=== PATIENT | male | born 1955 | race Caucasian/White ===

== ENCOUNTER 2016-07-14 23:26 | Emergency (ER) | payer MEDICAID ==
[2015-10-13 14:01] VITALS: BMI 36.4
[~2016-07-14 23:26] MED LIST: ADVAIR HFA [SP]12 GM INH; AUGMENTIN 875-11 TAB PO; BAYER CHEWABLE81 MG PO; BREO ELLIPTA 11 EACH INH; DALIRESP500 MCG PO; FISH OIL 1,0001 CA1; FISH OIL 1,0001 CA1 PO; GLUCOPHAGE500 MG PO; IPRAT-ALBUT 0.5-3 ML UPD; LANTUS INSULIN10 ML SC; MUCINEX DM ER1 EAC1 PO; NORCO 10/325 TA1 TA1 PO; OMNICEF300 MG PO; PERFOROMIS20 MCG/21 UPD; PLAVIX75 MG PO; PRAVACHOL40 MG PO; PREDNISONE20 MG PO; PRINIVIL20 MG PO; PROVENTIL HFA6.7 GM INH; PULMICORT0.5 MG/21 UPD; SINGULAIR10 MG PO; STERAPRED 5MG 125 MG PO; STERAPRED DS 1010 MG PO; SYMBICORT 16010.2 GM INH; SYMBICORT 80-10.2 GM INH; TENORMIN25 MG PO; VITAMIN B-121000 MCG PO; VITAMIN B-1250 MCG; ZITHROMAX500 MG PO
[2016-07-15 00:26] LABS: BASOPHILS 0.6 % (0.0-2.0); HEMATOCRIT 44.7 % (42.0-54.0); HEMOGLOBIN 15.4 g/dL (13.5-17.5); IMMATURE GRANULOCYTES 0.4 % (0-5); LYMPHOCYTES 18.9 % (15-50); MCH 30.1 pg (26.0-34.0); MCHC 34.5 g/dL (31.0-37.0); MCV 87.3 fL (80.0-100.0); MEAN PLATELET VOLUME 11.7 fL (7.4-10.4); MONOCYTES 4.1 % (2-11); PLATELET COUNT 162 10x3/uL (130-400); RBC 5.12 10x6/uL (4.20-6.10); RDW 13.8 % (11.5-14.5); WBC 11.3 10x3/uL (4.8-10.8)
[2016-07-15 00:49] LABS: ALBUMIN 3.3 g/dL (3.4-5.0); ALKALINE PHOSPHATASE 88 U/L (46-116); ALT (SGPT) 62 U/L (10-68); BILIRUBIN - TOTAL 0.42 mg/dL (0.2-1.3); CALCIUM 8.8 mg/dL (8.5-10.1); CHLORIDE - SERUM 107 mmol/L (98-107); CREATINE KINASE 87 UL (21-232); CREATININE - SERUM 0.8 mg/dL (0.6-1.3); MAGNESIUM - SERUM 1.7 mg/dL (1.8-2.4); POTASSIUM - SERUM 4.2 mmol/L (3.5-5.1); PRO BNP 77 pg/mL (0-125); PROTEIN - SERUM 6.8 g/dL (6.4-8.2); SODIUM 142 mmol/L (136-145); UREA NITROGEN 9 mg/dL (7-18); eGFR NON AFRICAN AMERICAN > 90 mL/min (90-120)
[2016-07-15 00:51] LABS: CALC OSMOLALITY 290 mosm/kg (275-300); GLUCOSE 257 mg/dL (74-106); TROPONIN-I < 0.017 ng/mL (0.000-0.060)
== END 2016-07-15 01:56 | disposition home or self-care (01) ==
LOC: D.ER 23:26
PROVIDERS: Emergency Medicine
DX: R06.00 Dyspnea, unspecified (principal); M54.5 Low back pain; J44.9 Chronic obstructive pulmonary disease, unspecified; E11.9 Type 2 diabetes mellitus without complications; Z79.4 Long term (current) use of insulin

== ENCOUNTER 2016-08-14 00:08 | Emergency (ER) | payer MEDICAID ==
[2015-10-13 14:01] VITALS: BMI 36.4
[2016-08-14 00:48] LABS: BASOPHILS 0.6 % (0.0-2.0); EOSINOPHILS 1.8 % (0-7); HEMATOCRIT 46.5 % (42.0-54.0); HEMOGLOBIN 15.9 g/dL (13.5-17.5); IMMATURE GRANULOCYTES 0.6 % (0-5); LYMPHOCYTES 19.8 % (15-50); MCH 29.9 pg (26.0-34.0); MCHC 34.2 g/dL (31.0-37.0); MCV 87.6 fL (80.0-100.0); MEAN PLATELET VOLUME 11.7 fL (7.4-10.4); MONOCYTES 6.3 % (2-11); NEUTROPHILS 70.9 % (40-80); PLATELET COUNT 143 10x3/uL (130-400); RBC 5.31 10x6/uL (4.20-6.10); RDW 13.9 % (11.5-14.5); WBC 10.7 10x3/uL (4.8-10.8)
[2016-08-14 01:07] LABS: ALBUMIN 3.3 g/dL (3.4-5.0); ALKALINE PHOSPHATASE 91 U/L (46-116); ALT (SGPT) 52 U/L (10-68); CALC OSMOLALITY 291 mosm/kg (275-300); CALCIUM 8.4 mg/dL (8.5-10.1); CARBON DIOXIDE 29.6 mmol/L (21.0-32.0); CHLORIDE - SERUM 103 mmol/L (98-107); CREATININE - SERUM 0.8 mg/dL (0.6-1.3); GLUCOSE 274 mg/dL (74-106); SODIUM 141 mmol/L (136-145); UREA NITROGEN 15 mg/dL (7-18); eGFR NON AFRICAN AMERICAN > 90 mL/min (90-120)
[2016-08-14 01:14] LABS: PRO BNP 74 pg/mL (0-125)
== END 2016-08-14 01:42 | disposition home or self-care (01) ==
LOC: D.ER 00:08
PROVIDERS: Physician Assistant Medical
DX: J44.1 Chronic obstructive pulmonary disease with (acute) exacerbation (principal); E11.9 Type 2 diabetes mellitus without complications; Z79.4 Long term (current) use of insulin

== ENCOUNTER 2016-11-08 15:06 | Emergency (ER) | payer MEDICAID ==
[2015-10-13 14:01] VITALS: BMI 36.4
[2016-11-08 16:00] LABS: BASOPHILS 0.5 % (0-2); EOSINOPHILS 1.5 % (0-7); HEMATOCRIT 45.1 % (42.0-54.0); HEMOGLOBIN 15.7 g/dL (13.5-17.5); IMMATURE GRANULOCYTES 0.5 % (0-5); LYMPHOCYTES 17.8 % (15-50); MCH 30.5 pg (26.0-34.0); MCHC 34.8 g/dL (31.0-37.0); MCV 87.6 fL (80.0-100.0); MEAN PLATELET VOLUME 11.6 fL (7.4-10.4); MONOCYTES 5.2 % (2-11); NEUTROPHILS 74.5 % (40-80); PLATELET COUNT 145 10x3/uL (130-400); RBC 5.15 10x6/uL (4.20-6.10); RDW 13.9 % (11.5-14.5)
[2016-11-08 18:26] LABS: ALBUMIN 3.5 g/dL (3.4-5.0); ALKALINE PHOSPHATASE 77 U/L (46-116); ALT (SGPT) 56 U/L (10-68); AMYLASE - SERUM 52 U/L (25-115); CALC OSMOLALITY 284 mosm/kg (275-300); CALCIUM 8.9 mg/dL (8.5-10.1); CARBON DIOXIDE 26.6 mmol/L (21.0-32.0); CHLORIDE - SERUM 104 mmol/L (98-107); CREATININE - SERUM 0.7 mg/dL (0.6-1.3); LIPASE 149 U/L (73-393); POTASSIUM - SERUM 3.7 mmol/L (3.5-5.1); PROTEIN - SERUM 7.2 g/dL (6.4-8.2); SODIUM 139 mmol/L (136-145); UREA NITROGEN 14 mg/dL (7-18); eGFR NON AFRICAN AMERICAN > 90 mL/min (90-120)
[2016-11-08 18:48] LABS: GLUCOSE 204 mg/dL (74-106)
[2016-11-08 23:23] LABS: APPEARANCE CLEAR (CLEAR); BILIRUBIN NEGATIVE (NEGATIVE); COLOR YELLOW (YELLOW); GLUCOSE 1000 mg/dL (NEGATIVE); KETONE NEGATIVE (NEGATIVE); LEUKOCYTE ESTERASE NEGATIVE (NEGATIVE); NITRITE NEGATIVE (NEGATIVE); PROTEIN NEGATIVE (NEGATIVE); UROBILINOGEN NORMAL (NORMAL)
== END 2016-11-09 01:00 | disposition home or self-care (01) ==
LOC: D.ER 15:06
PROVIDERS: Emergency Medicine; Physician Assistant
DX: R10.9 Unspecified abdominal pain (principal); J44.9 Chronic obstructive pulmonary disease, unspecified; I10 Essential (primary) hypertension; I25.10 Atherosclerotic heart disease of native coronary artery without angina pectoris; I50.9 Heart failure, unspecified; F17.200 Nicotine dependence, unspecified, uncomplicated

== ENCOUNTER 2016-12-08 10:31 | Emergency (ER) | payer MEDICAID ==
[2015-10-13 14:01] VITALS: BMI 36.4
[2016-12-08 13:11] LABS: BASOPHILS 0.6 % (0-2); EOSINOPHILS 2.4 % (0-7); HEMOGLOBIN 15.4 g/dL (13.5-17.5); IMMATURE GRANULOCYTES 0.4 % (0-5); LYMPHOCYTES 17.1 % (15-50); MCH 30.3 pg (26.0-34.0); MCHC 34.2 g/dL (31.0-37.0); MCV 88.4 fL (80.0-100.0); MEAN PLATELET VOLUME 11.8 fL (7.4-10.4); MONOCYTES 5.2 % (2-11); NEUTROPHILS 74.3 % (40-80); PLATELET COUNT 152 10x3/uL (130-400); RBC 5.09 10x6/uL (4.20-6.10); RDW 13.7 % (11.5-14.5)
[2016-12-08 13:30] LABS: ALBUMIN 3.3 g/dL (3.4-5.0); ALKALINE PHOSPHATASE 84 U/L (46-116); ALT (SGPT) 53 U/L (10-68); CALC OSMOLALITY 292 mosm/kg (275-300); CALCIUM 9.6 mg/dL (8.5-10.1); CARBON DIOXIDE 30.4 mmol/L (21.0-32.0); CHLORIDE - SERUM 105 mmol/L (98-107); CREATININE - SERUM 0.7 mg/dL (0.6-1.3); POTASSIUM - SERUM 3.8 mmol/L (3.5-5.1); SODIUM 145 mmol/L (136-145); UREA NITROGEN 16 mg/dL (7-18); eGFR NON AFRICAN AMERICAN > 90 mL/min (90-120)
[2016-12-08 13:35] LABS: GLUCOSE 151 mg/dL (74-106)
[2016-12-08 13:39] LABS: PRO BNP 149 pg/mL (0-125)
== END 2016-12-08 14:28 | disposition home or self-care (01) ==
LOC: D.ER 10:31
PROVIDERS: Emergency Medicine
DX: R06.00 Dyspnea, unspecified (principal); J44.1 Chronic obstructive pulmonary disease with (acute) exacerbation; I10 Essential (primary) hypertension; I50.9 Heart failure, unspecified; I25.10 Atherosclerotic heart disease of native coronary artery without angina pectoris

== ENCOUNTER 2017-01-12 01:53 | Emergency (ER) | payer MEDICAID ==
[2015-10-13 14:01] VITALS: BMI 36.4
== END 2017-01-12 02:51 | disposition home or self-care (01) ==
LOC: D.ER 01:53
DX: R06.00 Dyspnea, unspecified (principal); J44.1 Chronic obstructive pulmonary disease with (acute) exacerbation; J45.909 Unspecified asthma, uncomplicated; I25.10 Atherosclerotic heart disease of native coronary artery without angina pectoris; I10 Essential (primary) hypertension; I50.9 Heart failure, unspecified

== ENCOUNTER 2017-02-06 17:43 | Emergency (ER) | payer MEDICAID ==
[2015-10-13 14:01] VITALS: BMI 36.4
[2017-02-06 18:58] LABS: BASOPHILS 0.4 % (0-2); EOSINOPHILS 2.4 % (0-7); HEMATOCRIT 43.9 % (42.0-54.0); HEMOGLOBIN 15.3 g/dL (13.5-17.5); IMMATURE GRANULOCYTES 0.4 % (0-5); LYMPHOCYTES 17.6 % (15-50); MCH 30.4 pg (26.0-34.0); MCHC 34.9 g/dL (31.0-37.0); MCV 87.1 fL (80.0-100.0); MEAN PLATELET VOLUME 11.6 fL (7.4-10.4); MONOCYTES 4.7 % (2-11); NEUTROPHILS 74.5 % (40-80); PLATELET COUNT 151 10x3/uL (130-400); RBC 5.04 10x6/uL (4.20-6.10); RDW 13.7 % (11.5-14.5); WBC 11.3 10x3/uL (4.8-10.8)
[2017-02-06 19:13] LABS: ALBUMIN 2.9 g/dL (3.4-5.0); ALKALINE PHOSPHATASE 85 U/L (46-116); ALT (SGPT) 33 U/L (10-68); BILIRUBIN - TOTAL 0.56 mg/dL (0.2-1.3); CALC OSMOLALITY 288 mosm/kg (275-300); CALCIUM 8.3 mg/dL (8.5-10.1); CARBON DIOXIDE 34.6 mmol/L (21.0-32.0); CHLORIDE - SERUM 103 mmol/L (98-107); CREATININE - SERUM 0.7 mg/dL (0.6-1.3); POTASSIUM - SERUM 3.5 mmol/L (3.5-5.1); PROTEIN - SERUM 6.3 g/dL (6.4-8.2); SODIUM 141 mmol/L (136-145); UREA NITROGEN 10 mg/dL (7-18); eGFR NON AFRICAN AMERICAN > 90 mL/min (90-120)
[2017-02-06 19:14] LABS: GLUCOSE 258 mg/dL (74-106)
== END 2017-02-06 20:09 | disposition home or self-care (01) ==
LOC: D.ER 17:43
PROVIDERS: Emergency Medicine
DX: J44.1 Chronic obstructive pulmonary disease with (acute) exacerbation (principal); E11.65 Type 2 diabetes mellitus with hyperglycemia; Z79.4 Long term (current) use of insulin; I10 Essential (primary) hypertension; I50.9 Heart failure, unspecified; I25.10 Atherosclerotic heart disease of native coronary artery without angina pectoris

== ENCOUNTER 2017-06-24 12:55 | Emergency (ER) | payer MEDICAID ==
[2015-10-13 14:01] VITALS: BMI 36.4
[2017-06-24 14:49] LABS: BASOPHILS 0.5 % (0-2); EOSINOPHILS 0.2 % (0-7); HEMATOCRIT 44.8 % (42.0-54.0); HEMOGLOBIN 15.5 g/dL (13.5-17.5); IMMATURE GRANULOCYTES 0.8 % (0-5); LYMPHOCYTES 15.6 % (15-50); MCH 30.5 pg (26.0-34.0); MCHC 34.6 g/dL (31.0-37.0); MEAN PLATELET VOLUME 12.3 fL (7.4-10.4); MONOCYTES 13.8 % (2-11); NEUTROPHILS 69.1 % (40-80); PLATELET COUNT 156 10x3/uL (130-400); RBC 5.09 10x6/uL (4.20-6.10); WBC 8.3 10x3/uL (4.8-10.8)
[2017-06-24 14:59] LABS: ALBUMIN 3.3 g/dL (3.4-5.0); ANION GAP 15.5 mmol/L (8-16); BILIRUBIN - TOTAL 0.69 mg/dL (0.2-1.3); CALCIUM 8.4 mg/dL (8.5-10.1); CARBON DIOXIDE 25.8 mmol/L (21.0-32.0); CREATININE - SERUM 1.3 mg/dL (0.6-1.3); POTASSIUM - SERUM 4.3 mmol/L (3.5-5.1); PROTEIN - SERUM 6.9 g/dL (6.4-8.2)
== END 2017-06-24 17:58 | disposition home or self-care (01) ==
LOC: D.ER 12:55
PROVIDERS: Family Medicine
DX: J44.1 Chronic obstructive pulmonary disease with (acute) exacerbation (principal); J20.9 Acute bronchitis, unspecified

== ENCOUNTER 2017-07-11 18:47 | Emergency (ER) | payer MEDICAID ==
[2015-10-13 14:01] VITALS: BMI 36.4
[2017-07-11 20:59] LABS: BASOPHILS 0.3 % (0-2); EOSINOPHILS 1.2 % (0-7); HEMATOCRIT 45.8 % (42.0-54.0); HEMOGLOBIN 15.7 g/dL (13.5-17.5); IMMATURE GRANULOCYTES 0.5 % (0-5); LYMPHOCYTES 18.3 % (15-50); MCH 30.5 pg (26.0-34.0); MCHC 34.3 g/dL (31.0-37.0); MCV 88.9 fL (80.0-100.0); MEAN PLATELET VOLUME 11.9 fL (7.4-10.4); MONOCYTES 5.8 % (2-11); NEUTROPHILS 73.9 % (40-80); PLATELET COUNT 177 10x3/uL (130-400); RBC 5.15 10x6/uL (4.20-6.10); RDW 13.4 % (11.5-14.5); WBC 11.9 10x3/uL (4.8-10.8)
[2017-07-11 21:34] LABS: ALBUMIN 3.2 g/dL (3.4-5.0); ALKALINE PHOSPHATASE 73 U/L (46-116); ALT (SGPT) 46 U/L (10-68); BILIRUBIN - TOTAL 0.63 mg/dL (0.2-1.3); CALC OSMOLALITY 284 mosm/kg (275-300); CALCIUM 9.1 mg/dL (8.5-10.1); CARBON DIOXIDE 31.4 mmol/L (21.0-32.0); CHLORIDE - SERUM 102 mmol/L (98-107); CREATININE - SERUM 0.9 mg/dL (0.6-1.3); POTASSIUM - SERUM 3.7 mmol/L (3.5-5.1); PROTEIN - SERUM 6.5 g/dL (6.4-8.2); SODIUM 141 mmol/L (136-145); UREA NITROGEN 15 mg/dL (7-18); eGFR NON AFRICAN AMERICAN > 90 mL/min (90-120)
[2017-07-11 21:36] LABS: GLUCOSE 158 mg/dL (74-106)
[2017-07-11 21:44] LABS: CKMB 0.9 U/L (0.0-3.6)
[2017-07-11 21:46] LABS: TROPONIN-I < 0.017 ng/mL (0.000-0.060)
== END 2017-07-11 23:06 | disposition home or self-care (01) ==
LOC: D.ER 18:47
PROVIDERS: Family Medicine
DX: J20.9 Acute bronchitis, unspecified (principal); J44.1 Chronic obstructive pulmonary disease with (acute) exacerbation; F17.200 Nicotine dependence, unspecified, uncomplicated

== ENCOUNTER 2017-09-01 22:53 | Inpatient (IN) | payer MEDICAID ==
[~2017-09-01] VITALS: Ht 182.9 cm; Wt 104.8 kg
--- NOTE | ~2017-09-01 | EC ---
PATIENT:TAMARA LONDONO DATE OF SERVICE: 09/02/17 SEX: M MEDICAL RECORD: [id number] DATE OF : [birth year] LOCATION:[facility] AGE OF PATIENT: 61 ADMISSION DATE: 09/02/17 REFERRING PHYSICIAN: INTERPRETING PHYSICIAN: CHINA GRIJALVA MD ECHOCARDIOGRAM REPORT ECHO CHARGES 4 ECHO COMPLETE CLINICAL DIAGNOSIS: HYPOTENSION HX CAD/STENTS ECHOCARDIOGRAPHIC MEASUREMENTS (adult normal given) AC root (d.<3.7cm) 3.5 cm LV Septum d (<1.2 cm> 1.8 cm Valve Excursion 1.9 cm LV Septum (systole) 2.0 cm Left Atria (s.<4.0cm> 3.3 cm LVPW d(<1.2cm) 1.8 cm RV (d.<2.3cm) 4.2 cm LVPW (sytole) 2.1 cm LV diastole(<5.6CM) 4.0 cm MV E-F(>70mm/sec) cm LV systole 2.7 cm LVOT Diameter 1.7 cm MV exc.(>10mm) cm Est.ejection fraction (50-75%) % Pericardial Effusion N DOPPLER: LVIT cm/sec A 95.0 cm/sec E 74.0 cm/sec LA cm/sec RVSP 17 mmHg LVOT 118 cm/sec AOP1/2T m/s Asc. Ao 160 cm/sec RVOT 125 cm/sec RA cm/sec PA 135 cm/sec AV Gradient Peak 10.28mmHg AV Mean 4.98 mmHg AV Area 1.8 cm MV Gradient Peak 3.95 mmHg MV Mean 2.25 mmHg MV Area cm COMMENTS: Database Marketing Specialist: 2 SALOME MORGAN Etymology Teacher: 3 Dr. Chaparro TAPE# PACS DATE OF SERVICE: 09/04/2017 Adequate 2D echo, color flow and spectral Doppler, and M-mode. LVH is present. LV internal dimension is normal. Wall motion is normal. EF is greater than 55%. Aortic valve is tricuspid. No evidence of stenosis by Doppler interrogation. Left atrium is normal. Mitral valve shows no prolapse. Trace MR. Right-sided chamber size is normal. Trace TR. TRANSINT:[id number] Voice Confirmation ID: [id number] DOCUMENT ID: [id number] ECHOCARDIOGRAM REPORT [id number] TAMARA LONDONO 09/12/2017 Edited to correct date of service, dmm. CHINA GRIJALVA MD at 1030 CC: [id number] DICTATION DATE: 09/05/17 1310 COATING LINE WORKER: 09/05/17 1319 DIS IN 09/05/17 [facility] [address] [id number]
[2017-09-01 23:24] LABS: BASOPHILS 0.1 % (0-2); EOSINOPHILS 0.2 % (0-7); HEMATOCRIT 47.1 % (42.0-54.0); HEMOGLOBIN 16.1 g/dL (13.5-17.5); LYMPHOCYTES 7.2 % (15-50); MCH 30.5 pg (26.0-34.0); MCHC 34.2 g/dL (31.0-37.0); MCV 89.2 fL (80.0-100.0); MEAN PLATELET VOLUME 10.9 fL (7.4-10.4); MONOCYTES 6.6 % (2-11); NEUTROPHILS 84.9 % (40-80); PLATELET COUNT 191 10x3/uL (130-400); RBC 5.28 10x6/uL (4.20-6.10); RDW 13.8 % (11.5-14.5); WBC 13.6 10x3/uL (4.8-10.8)
[2017-09-01 23:39] LABS: ALBUMIN 3.2 g/dL (3.4-5.0); ALKALINE PHOSPHATASE 70 U/L (46-116); ALT (SGPT) 63 U/L (10-68); BILIRUBIN - TOTAL 0.61 mg/dL (0.2-1.3); CALC OSMOLALITY 295 mosm/kg (275-300); CALCIUM 8.2 mg/dL (8.5-10.1); CARBON DIOXIDE 32.1 mmol/L (21.0-32.0); CHLORIDE - SERUM 100 mmol/L (98-107); POTASSIUM - SERUM 4.6 mmol/L (3.5-5.1); PROTEIN - SERUM 6.3 g/dL (6.4-8.2); SODIUM 137 mmol/L (136-145); UREA NITROGEN 38 mg/dL (7-18); eGFR NON AFRICAN AMERICAN 80 mL/min (90-120)
[2017-09-01 23:46] LABS: CREATINE KINASE 88 UL (21-232); GLUCOSE 332 mg/dL (74-106); PRO BNP 206 pg/mL (0-125)
[2017-09-02 03:00] VITALS: BP 131/77; BMI 31.4
[2017-09-02] MEDS ORDERED: HYDROCODONE-APA1 TAB PO (04:55)
[2017-09-02 05:41] LABS: BASOPHILS 0.1 % (0-2); EOSINOPHILS 0.2 % (0-7); HEMATOCRIT 44.4 % (42.0-54.0); HEMOGLOBIN 14.9 g/dL (13.5-17.5); LYMPHOCYTES 4.5 % (15-50); MCHC 33.6 g/dL (31.0-37.0); MCV 89.3 fL (80.0-100.0); MEAN PLATELET VOLUME 11.2 fL (7.4-10.4); MONOCYTES 1.4 % (2-11); NEUTROPHILS 92.8 % (40-80); PLATELET COUNT 170 10x3/uL (130-400); RBC 4.97 10x6/uL (4.20-6.10); RDW 13.7 % (11.5-14.5); WBC 12.9 10x3/uL (4.8-10.8)
[2017-09-02 06:44] LABS: CALC OSMOLALITY 300 mosm/kg (275-300); CARBON DIOXIDE 28.8 mmol/L (21.0-32.0); CHLORIDE - SERUM 98 mmol/L (98-107); CREATININE - SERUM 0.8 mg/dL (0.6-1.3); POTASSIUM - SERUM 4.7 mmol/L (3.5-5.1); SODIUM 137 mmol/L (136-145); UREA NITROGEN 38 mg/dL (7-18); eGFR NON AFRICAN AMERICAN > 90 mL/min (90-120)
[2017-09-02 06:48] LABS: GLUCOSE 429 mg/dL (74-106)
[2017-09-02 09:13] VITALS: BP 142/75
[2017-09-02 12:29] VITALS: BP 120/79
[2017-09-02 13:27] VITALS: Ht 182.9 cm; Wt 104.8 kg
[2017-09-02 16:15] VITALS: BP 101/66
[2017-09-02 20:00] VITALS: BP 111/73
[2017-09-03] VITALS: BP 110/71
[2017-09-03 04:00] VITALS: BP 108/69
[2017-09-03 08:07] VITALS: BP 97/61
[2017-09-03 11:29] LABS: CALC OSMOLALITY 291 mosm/kg (275-300); CARBON DIOXIDE 33.7 mmol/L (21.0-32.0); CHLORIDE - SERUM 97 mmol/L (98-107); CREATININE - SERUM 0.9 mg/dL (0.6-1.3); GLUCOSE 250 mg/dL (74-106); SODIUM 136 mmol/L (136-145); UREA NITROGEN 47 mg/dL (7-18); eGFR NON AFRICAN AMERICAN > 90 mL/min (90-120)
[2017-09-03 12:15] VITALS: BP 97/57
[2017-09-03 16:24] VITALS: BP 92/48
[2017-09-03 20:00] VITALS: BP 89/42
[2017-09-04] VITALS: BP 94/56
[2017-09-04 04:00] VITALS: BP 98/62
[2017-09-04 05:28] LABS: BASOPHILS 0.1 % (0-2); HEMATOCRIT 42.9 % (42.0-54.0); HEMOGLOBIN 14.4 g/dL (13.5-17.5); IMMATURE GRANULOCYTES 2.2 % (0-5); LYMPHOCYTES 21.3 % (15-50); MCH 29.8 pg (26.0-34.0); MCHC 33.6 g/dL (31.0-37.0); MCV 88.6 fL (80.0-100.0); MEAN PLATELET VOLUME 10.6 fL (7.4-10.4); MONOCYTES 6.3 % (2-11); NEUTROPHILS 69.1 % (40-80); PLATELET COUNT 162 10x3/uL (130-400); RBC 4.84 10x6/uL (4.20-6.10); RDW 13.7 % (11.5-14.5); WBC 14.2 10x3/uL (4.8-10.8)
[2017-09-04 06:08] LABS: ALBUMIN 2.6 g/dL (3.4-5.0); ALKALINE PHOSPHATASE 50 U/L (46-116); ALT (SGPT) 55 U/L (10-68); BILIRUBIN - TOTAL 0.37 mg/dL (0.2-1.3); CALC OSMOLALITY 285 mosm/kg (275-300); CALCIUM 8.5 mg/dL (8.5-10.1); CARBON DIOXIDE 35.3 mmol/L (21.0-32.0); CHLORIDE - SERUM 98 mmol/L (98-107); CREATININE - SERUM 0.8 mg/dL (0.6-1.3); POTASSIUM - SERUM 4.3 mmol/L (3.5-5.1); PROTEIN - SERUM 5.2 g/dL (6.4-8.2); SODIUM 137 mmol/L (136-145); UREA NITROGEN 42 mg/dL (7-18); eGFR NON AFRICAN AMERICAN > 90 mL/min (90-120)
[2017-09-04 06:11] LABS: GLUCOSE 109 mg/dL (74-106)
[2017-09-04 08:18] VITALS: BP 96/59
[2017-09-04 12:42] VITALS: BP 122/58
[2017-09-04 16:22] VITALS: BP 102/64
[2017-09-04 21:31] VITALS: BP 120/63
[2017-09-05 00:50] VITALS: BP 120/67
[2017-09-05 05:43] VITALS: BP 132/68
[2017-09-05 06:14] LABS: BASOPHILS 0.2 % (0-2); EOSINOPHILS 1.3 % (0-7); HEMATOCRIT 42.3 % (42.0-54.0); HEMOGLOBIN 14.2 g/dL (13.5-17.5); LYMPHOCYTES 21.5 % (15-50); MCH 29.4 pg (26.0-34.0); MCHC 33.6 g/dL (31.0-37.0); MCV 87.6 fL (80.0-100.0); PLATELET COUNT 156 10x3/uL (130-400); RBC 4.83 10x6/uL (4.20-6.10); RDW 13.4 % (11.5-14.5); WBC 12.8 10x3/uL (4.8-10.8)
[2017-09-05 06:37] LABS: ALBUMIN 2.7 g/dL (3.4-5.0); ALKALINE PHOSPHATASE 51 U/L (46-116); ALT (SGPT) 55 U/L (10-68); BILIRUBIN - TOTAL 0.51 mg/dL (0.2-1.3); CALCIUM 8.1 mg/dL (8.5-10.1); CARBON DIOXIDE 34.2 mmol/L (21.0-32.0); CHLORIDE - SERUM 100 mmol/L (98-107); CREATININE - SERUM 0.7 mg/dL (0.6-1.3); PROTEIN - SERUM 5.4 g/dL (6.4-8.2); SODIUM 137 mmol/L (136-145); eGFR NON AFRICAN AMERICAN > 90 mL/min (90-120)
[2017-09-05 06:40] LABS: CALC OSMOLALITY 275 mosm/kg (275-300); GLUCOSE 69 mg/dL (74-106); POTASSIUM - SERUM 3.6 mmol/L (3.5-5.1); UREA NITROGEN 23 mg/dL (7-18)
[2017-09-05 09:59] VITALS: BP 129/74
[2017-09-05 11:55] VITALS: BP 110/72
[2017-09-05] MEDS ORDERED: FUROSEMIDE20 MG PO (12:02)
[2017-09-05] MEDS ORDERED: LANTUS INSULIN10 ML SC (12:18)
[2017-09-05 12:24] VITALS: BP 100/52
== END 2017-09-05 13:10 | disposition home or self-care (01) | DRG 292 ==
LOC: D.ER 22:53 → D.MS 09-02 00:45 → D.EDHOLD 09-02 00:45 → D.MS 09-02 01:22
PROVIDERS: Family Medicine
PROC: 0T9B70Z Drainage of Bladder with Drainage Device, Via Natural or Artificial Opening (ICD-10-PCS; principal; 2017-09-01)
DX: I11.0 Hypertensive heart disease with heart failure (principal); J44.1 Chronic obstructive pulmonary disease with (acute) exacerbation; R60.9 Edema, unspecified; I50.9 Heart failure, unspecified; Z99.81 Dependence on supplemental oxygen; E11.65 Type 2 diabetes mellitus with hyperglycemia; I95.2 Hypotension due to drugs; T46.4X5A Adverse effect of angiotensin-converting-enzyme inhibitors, initial encounter; T44.7X5A Adverse effect of beta-adrenoreceptor antagonists, initial encounter; Y92.239 Unspecified place in hospital as the place of occurrence of the external cause; Z87.891 Personal history of nicotine dependence

== ENCOUNTER → 2017-09-26 11:30 | Outpatient (CLI) | payer MEDICAID ==
[2017-09-02 13:27] VITALS: BMI 31.3
[~2017-09-26 11:30] MED LIST changes: +FUROSEMIDE20 MG PO; +HYDROCODONE-APA1 TAB PO; +LASIX80 MG PO
== END | disposition home or self-care (01) ==
LOC: D.RT 11:00
DX: J44.9 Chronic obstructive pulmonary disease, unspecified (principal)

== ENCOUNTER 2017-11-08 04:39 | Emergency (ER) | payer MEDICAID ==
[2017-09-02 13:27] VITALS: BMI 31.3
[~2017-11-08 04:39] MED LIST changes: -LASIX80 MG PO
[2017-11-08 05:19] LABS: BASOPHILS 0.3 % (0-2); EOSINOPHILS 0.8 % (0-7); HEMATOCRIT 39.3 % (42.0-54.0); HEMOGLOBIN 13.7 g/dL (13.5-17.5); LYMPHOCYTES 20.8 % (15-50); MCH 31.1 pg (26.0-34.0); MCHC 34.9 g/dL (31.0-37.0); MCV 89.1 fL (80.0-100.0); MEAN PLATELET VOLUME 11.1 fL (7.4-10.4); MONOCYTES 5.3 % (2-11); NEUTROPHILS 70.8 % (40-80); PLATELET COUNT 163 10x3/uL (130-400); RBC 4.41 10x6/uL (4.20-6.10); RDW 14.9 % (11.5-14.5); WBC 14.8 10x3/uL (4.8-10.8)
[2017-11-08 05:44] LABS: ALBUMIN 2.7 g/dL (3.4-5.0); ALKALINE PHOSPHATASE 59 U/L (46-116); ALT (SGPT) 73 U/L (10-68); BILIRUBIN - TOTAL 0.22 mg/dL (0.2-1.3); CALCIUM 8.5 mg/dL (8.5-10.1); CARBON DIOXIDE 28.6 mmol/L (21.0-32.0); CHLORIDE - SERUM 100 mmol/L (98-107); CREATININE - SERUM 1.1 mg/dL (0.6-1.3); POTASSIUM - SERUM 3.9 mmol/L (3.5-5.1); PRO BNP 169 pg/mL (0-125); PROTEIN - SERUM 5.9 g/dL (6.4-8.2); SODIUM 136 mmol/L (136-145); UREA NITROGEN 31 mg/dL (7-18); eGFR NON AFRICAN AMERICAN 72 mL/min (90-120)
[2017-11-08 05:54] LABS: CALC OSMOLALITY 297 mosm/kg (275-300); GLUCOSE 436 mg/dL (74-106); TROPONIN-I < 0.017 ng/mL (0.000-0.060)
== END 2017-11-08 06:46 | disposition home or self-care (01) ==
LOC: D.ER 04:39
PROVIDERS: Family Medicine
DX: J44.1 Chronic obstructive pulmonary disease with (acute) exacerbation (principal); I50.9 Heart failure, unspecified

== ENCOUNTER 2017-11-13 12:22 | Emergency (ER) | payer MEDICAID ==
[2017-09-02 13:27] VITALS: BMI 31.3
[2017-11-13 12:58] LABS: BASOPHILS 0.3 % (0-2); HEMATOCRIT 38.5 % (42.0-54.0); HEMOGLOBIN 13.7 g/dL (13.5-17.5); IMMATURE GRANULOCYTES 2.1 % (0-5); MCH 31.8 pg (26.0-34.0); MCHC 35.6 g/dL (31.0-37.0); MCV 89.3 fL (80.0-100.0); NEUTROPHILS 70.6 % (40-80); PLATELET COUNT 170 10x3/uL (130-400); RBC 4.31 10x6/uL (4.20-6.10); WBC 17.5 10x3/uL (4.8-10.8)
[2017-11-13 13:15] LABS: ALBUMIN 3.2 g/dL (3.4-5.0); ALKALINE PHOSPHATASE 60 U/L (46-116); ALT (SGPT) 71 U/L (10-68); BILIRUBIN - TOTAL 0.36 mg/dL (0.2-1.3); CALC OSMOLALITY 289 mosm/kg (275-300); CALCIUM 8.5 mg/dL (8.5-10.1); CARBON DIOXIDE 32.5 mmol/L (21.0-32.0); CHLORIDE - SERUM 100 mmol/L (98-107); CREATININE - SERUM 0.9 mg/dL (0.6-1.3); POTASSIUM - SERUM 3.7 mmol/L (3.5-5.1); PROTEIN - SERUM 6.6 g/dL (6.4-8.2); SODIUM 138 mmol/L (136-145); UREA NITROGEN 36 mg/dL (7-18); eGFR NON AFRICAN AMERICAN > 90 mL/min (90-120)
[2017-11-13 13:16] LABS: GLUCOSE 206 mg/dL (74-106)
[2017-11-13 13:23] LABS: CREATINE KINASE 45 UL (21-232); PRO BNP 167 pg/mL (0-125); TROPONIN-I < 0.017 ng/mL (0.000-0.060)
[2017-11-13 13:46] LABS: KETONE - SERUM NEGATIVE (NEGATIVE)
[2017-11-13 14:43] LABS: APPEARANCE CLEAR (CLEAR); BILIRUBIN NEGATIVE (NEGATIVE); COLOR YELLOW (YELLOW); GLUCOSE 1000 mg/dL (NEGATIVE); KETONE NEGATIVE (NEGATIVE); NITRITE NEGATIVE (NEGATIVE); PROTEIN NEGATIVE (NEGATIVE); UROBILINOGEN NORMAL (NORMAL)
== END 2017-11-13 17:27 | disposition home or self-care (01) ==
LOC: D.ER 12:22
PROVIDERS: Family Medicine; Nurse Practitioner Family
DX: J11.1 Influenza due to unidentified influenza virus with other respiratory manifestations (principal); J44.1 Chronic obstructive pulmonary disease with (acute) exacerbation; E11.65 Type 2 diabetes mellitus with hyperglycemia; I50.9 Heart failure, unspecified; F17.200 Nicotine dependence, unspecified, uncomplicated

== ENCOUNTER 2017-11-22 11:20 | Emergency (ER) | payer MEDICAID ==
[2017-09-02 13:27] VITALS: BMI 31.3
[2017-11-22 12:02] LABS: BASOPHILS 0.1 % (0-2); EOSINOPHILS 0.1 % (0-7); HEMATOCRIT 39.1 % (42.0-54.0); HEMOGLOBIN 13.9 g/dL (13.5-17.5); IMMATURE GRANULOCYTES 1.9 % (0-5); LYMPHOCYTES 7.6 % (15-50); MCH 31.8 pg (26.0-34.0); MCHC 35.5 g/dL (31.0-37.0); MCV 89.5 fL (80.0-100.0); MEAN PLATELET VOLUME 11.2 fL (7.4-10.4); MONOCYTES 2.8 % (2-11); NEUTROPHILS 87.5 % (40-80); PLATELET COUNT 163 10x3/uL (130-400); RBC 4.37 10x6/uL (4.20-6.10); RDW 14.5 % (11.5-14.5); WBC 15.6 10x3/uL (4.8-10.8)
[2017-11-22 12:20] LABS: ALBUMIN 3.1 g/dL (3.4-5.0); ALKALINE PHOSPHATASE 57 U/L (46-116); ALT (SGPT) 64 U/L (10-68); CALC OSMOLALITY 293 mosm/kg (275-300); CALCIUM 8.8 mg/dL (8.5-10.1); CARBON DIOXIDE 29.3 mmol/L (21.0-32.0); CHLORIDE - SERUM 100 mmol/L (98-107); CREATININE - SERUM 1.2 mg/dL (0.6-1.3); PROTEIN - SERUM 6.3 g/dL (6.4-8.2); SODIUM 139 mmol/L (136-145); UREA NITROGEN 26 mg/dL (7-18); eGFR NON AFRICAN AMERICAN 65 mL/min (90-120)
[2017-11-22 12:26] LABS: GLUCOSE 305 mg/dL (74-106)
[2017-11-22 12:45] LABS: PRO BNP 304 pg/mL (0-125)
[2017-11-22 12:52] LABS: TROPONIN-I < 0.017 ng/mL (0.000-0.060)
== END 2017-11-22 14:25 | disposition home or self-care (01) ==
LOC: D.ER 11:20
PROVIDERS: Family Medicine
DX: J44.1 Chronic obstructive pulmonary disease with (acute) exacerbation (principal); I50.9 Heart failure, unspecified; E11.9 Type 2 diabetes mellitus without complications

== ENCOUNTER 2017-12-10 00:34 | Emergency (ER) | payer MEDICAID ==
[~2017-12-10] VITALS: Ht 182.9 cm; Wt 108.2 kg
[2017-12-10 00:57] VITALS: Ht 182.9 cm; Wt 108.2 kg
[2017-12-10] MEDS ORDERED: LASIX80 MG PO (01:01)
[2017-12-10] MEDS ORDERED: TENORMIN25 MG PO (01:01)
[2017-12-10 01:57] LABS: BASOPHILS 0.1 % (0-2); EOSINOPHILS 0.2 % (0-7); HEMATOCRIT 35.6 % (42.0-54.0); HEMOGLOBIN 12.3 g/dL (13.5-17.5); IMMATURE GRANULOCYTES 0.7 % (0-5); MCH 31.8 pg (26.0-34.0); MCHC 34.6 g/dL (31.0-37.0); MEAN PLATELET VOLUME 11.3 fL (7.4-10.4); MONOCYTES 4.2 % (2-11); NEUTROPHILS 82.8 % (40-80); PLATELET COUNT 181 10x3/uL (130-400); RBC 3.87 10x6/uL (4.20-6.10); RDW 15.3 % (11.5-14.5); WBC 12.6 10x3/uL (4.8-10.8)
[2017-12-10 02:14] LABS: ALBUMIN 3.2 g/dL (3.4-5.0); ANION GAP 11.9 mmol/L (8-16); BILIRUBIN - TOTAL 0.4 mg/dL (0.2-1.3); CALCIUM 8.9 mg/dL (8.5-10.1); CARBON DIOXIDE 34.5 mmol/L (21.0-32.0); CREATININE - SERUM 2.3 mg/dL (0.6-1.3); POTASSIUM - SERUM 3.4 mmol/L (3.5-5.1); PROTEIN - SERUM 6.4 g/dL (6.4-8.2)
[2017-12-10 08:16] VITALS: BP 131/81
== END 2017-12-10 08:16 | disposition home or self-care (01) ==
LOC: D.ER 00:34
PROVIDERS: Family Medicine
DX: J44.9 Chronic obstructive pulmonary disease, unspecified (principal); R10.9 Unspecified abdominal pain; N28.9 Disorder of kidney and ureter, unspecified; Z99.81 Dependence on supplemental oxygen; E11.9 Type 2 diabetes mellitus without complications; I10 Essential (primary) hypertension; J42 Unspecified chronic bronchitis

== ENCOUNTER 2018-03-04 04:40 | Emergency (ER) | payer MEDICAID ==
[~2018-03-04] VITALS: Ht 182.9 cm; Wt 118.2 kg
[~2018-03-04 04:40] MED LIST changes: +LASIX80 MG PO
[2018-03-04 04:42] VITALS: Ht 182.9 cm; Wt 118.2 kg
[2018-03-04 05:23] LABS: BASOPHILS 0.2 % (0-2); EOSINOPHILS 0.9 % (0-7); HEMATOCRIT 31.6 % (42.0-54.0); HEMOGLOBIN 10.3 g/dL (13.5-17.5); IMMATURE GRANULOCYTES 0.8 % (0-5); LYMPHOCYTES 13.3 % (15-50); MCH 30.3 pg (26.0-34.0); MCHC 32.6 g/dL (31.0-37.0); MCV 92.9 fL (80.0-100.0); MEAN PLATELET VOLUME 11.5 fL (7.4-10.4); MONOCYTES 6.7 % (2-11); NEUTROPHILS 78.1 % (40-80); RDW 13.9 % (11.5-14.5)
[2018-03-04 05:24] LABS: PLATELET COUNT 138 10x3/uL (130-400)
[2018-03-04 05:34] LABS: ALBUMIN 2.4 g/dL (3.4-5.0); ALKALINE PHOSPHATASE 190 U/L (46-116); ALT (SGPT) 53 U/L (10-68); BILIRUBIN - TOTAL 0.32 mg/dL (0.2-1.3); CALC OSMOLALITY 285 mosm/kg (275-300); CALCIUM 8.1 mg/dL (8.5-10.1); CHLORIDE - SERUM 104 mmol/L (98-107); POTASSIUM - SERUM 4.1 mmol/L (3.5-5.1); PROTEIN - SERUM 5.5 g/dL (6.4-8.2); SODIUM 140 mmol/L (136-145); UREA NITROGEN 19 mg/dL (7-18); eGFR NON AFRICAN AMERICAN 80 mL/min (90-120)
[2018-03-04 05:36] LABS: GLUCOSE 180 mg/dL (74-106)
[2018-03-04 05:41] LABS: PRO BNP 818 pg/mL (0-125)
[2018-03-04 08:15] VITALS: BP 141/89
[2018-03-05] MEDS ORDERED: K-DUR20 MEQ PO (11:13)
[2018-03-05] MEDS ORDERED: DURAGESIC1 PATCH .1 TRANSDERM (11:15)
[2018-03-05] MEDS ORDERED: MORPHINE S20 MG/5 ML SL (14:42)
[2018-03-05] MEDS ORDERED: ATIVAN2 MG/ML PO (14:44)
[2018-03-05] MEDS ORDERED: NEURONTIN600 MG PO (14:46)
[2018-03-05] MEDS ORDERED: STERAPRED DS 1010 MG PO (14:49)
[2018-03-05] MEDS ORDERED: HUMULIN R100 U/ML SC (14:50)
[2018-03-05] MEDS ORDERED: IBUPROFEN200 MG PO (14:51)
[2018-03-05] MEDS ORDERED: SENNA8.6 MG PO (14:52)
[2018-03-05] MEDS ORDERED: COLACE100 MG PO (14:52)
[2018-03-05] MEDS ORDERED: PHENERGAN25 M1 PO (14:53)
[2018-03-05] MEDS ORDERED: REGLAN10 MG PO (14:54)
[2018-03-05] MEDS ORDERED: MACROBID100 MG PO (14:55)
[2018-03-05] MEDS ORDERED: BACTRIM DS TABL1 TAB PO (14:55)
[2018-03-05] MEDS ORDERED: OXYBUTYNIN CHLOR5 MG PO (14:56)
== END 2018-03-04 08:17 | disposition home or self-care (01) ==
LOC: D.ER 04:40
PROVIDERS: Family Medicine
DX: R33.9 Retention of urine, unspecified (principal); J44.9 Chronic obstructive pulmonary disease, unspecified; N39.0 Urinary tract infection, site not specified; I10 Essential (primary) hypertension; E78.5 Hyperlipidemia, unspecified; E11.9 Type 2 diabetes mellitus without complications; F17.200 Nicotine dependence, unspecified, uncomplicated

== ENCOUNTER 2018-03-04 21:34 | Inpatient (IN) | payer MEDICAID ==
[~2018-03-04] VITALS: Ht 182.9 cm; Wt 90.9 kg
[2018-03-04 23:27] LABS: BASOPHILS 0.2 % (0-2); HEMATOCRIT 30.3 % (42.0-54.0); HEMOGLOBIN 9.9 g/dL (13.5-17.5); IMMATURE GRANULOCYTES 0.6 % (0-5); LYMPHOCYTES 16.6 % (15-50); MCH 30.3 pg (26.0-34.0); MCHC 32.7 g/dL (31.0-37.0); MCV 92.7 fL (80.0-100.0); MEAN PLATELET VOLUME 11.4 fL (7.4-10.4); MONOCYTES 5.4 % (2-11); NEUTROPHILS 76.2 % (40-80); PLATELET COUNT 141 10x3/uL (130-400); RBC 3.27 10x6/uL (4.20-6.10); RDW 13.9 % (11.5-14.5); WBC 9.3 10x3/uL (4.8-10.8)
[2018-03-04 23:35] LABS: ALBUMIN 2.5 g/dL (3.4-5.0); ALKALINE PHOSPHATASE 181 U/L (46-116); ALT (SGPT) 48 U/L (10-68); BILIRUBIN - TOTAL 0.47 mg/dL (0.2-1.3); CALC OSMOLALITY 284 mosm/kg (275-300); CALCIUM 8.1 mg/dL (8.5-10.1); CARBON DIOXIDE 32.5 mmol/L (21.0-32.0); CHLORIDE - SERUM 105 mmol/L (98-107); CREATININE - SERUM 0.9 mg/dL (0.6-1.3); GLUCOSE 165 mg/dL (74-106); POTASSIUM - SERUM 4.1 mmol/L (3.5-5.1); PROTEIN - SERUM 5.6 g/dL (6.4-8.2); SODIUM 140 mmol/L (136-145); UREA NITROGEN 18 mg/dL (7-18); eGFR NON AFRICAN AMERICAN 90 mL/min (90-120)
[2018-03-05 00:39] LABS: APPEARANCE HAZY (CLEAR); BACTERIA MODERATE /hpf (NONE SEEN); BILIRUBIN NEGATIVE (NEGATIVE); COLOR YELLOW (YELLOW); EPITHELIAL CELLS RARE /hpf (0-5); GLUCOSE NEGATIVE (NEGATIVE); KETONE MODERATE mg/dL (NEGATIVE); NITRITE NEGATIVE (NEGATIVE); PROTEIN TRACE mg/dL (NEGATIVE); UROBILINOGEN NORMAL (NORMAL)
[2018-03-05 06:38] VITALS: BP 126/85
[2018-03-05 08:04] VITALS: BP 108/64
[2018-03-05] MEDS ORDERED: K-DUR20 MEQ PO (11:13)
[2018-03-05] MEDS ORDERED: DURAGESIC1 PATCH .1 TRANSDERM (11:15)
[2018-03-05 11:41] VITALS: Ht 182.9 cm; Wt 90.9 kg
[2018-03-05] MEDS ORDERED: MORPHINE S20 MG/5 ML SL (14:42)
[2018-03-05] MEDS ORDERED: ATIVAN2 MG/ML PO (14:44)
[2018-03-05] MEDS ORDERED: NEURONTIN600 MG PO (14:46)
[2018-03-05] MEDS ORDERED: STERAPRED DS 1010 MG PO (14:49)
[2018-03-05] MEDS ORDERED: HUMULIN R100 U/ML SC (14:50)
[2018-03-05] MEDS ORDERED: IBUPROFEN200 MG PO (14:51)
[2018-03-05] MEDS ORDERED: SENNA8.6 MG PO (14:52)
[2018-03-05] MEDS ORDERED: COLACE100 MG PO (14:52)
[2018-03-05] MEDS ORDERED: PHENERGAN25 M1 PO (14:53)
[2018-03-05] MEDS ORDERED: REGLAN10 MG PO (14:54)
[2018-03-05] MEDS ORDERED: BACTRIM DS TABL1 TAB PO (14:55)
[2018-03-05] MEDS ORDERED: MACROBID100 MG PO (14:55)
[2018-03-05] MEDS ORDERED: OXYBUTYNIN CHLOR5 MG PO (14:56)
[2018-03-05 16:12] VITALS: BP 111/60
[2018-03-05 20:38] VITALS: BP 111/51
[2018-03-06 07:50] VITALS: BP 110/61
[2018-03-06 15:25] VITALS: BP 121/104
== END 2018-03-06 22:51 | disposition hospice, inpatient (51) | DRG 690 ==
LOC: D.ER 21:34 → D.M2 03-05 01:28
PROVIDERS: Family Medicine
DX: N39.0 Urinary tract infection, site not specified (principal); J44.9 Chronic obstructive pulmonary disease, unspecified; E11.9 Type 2 diabetes mellitus without complications; I11.0 Hypertensive heart disease with heart failure; I50.9 Heart failure, unspecified; Z72.0 Tobacco use

== ENCOUNTER 2018-03-06 22:46 | Inpatient (IN) | payer OTHER ==
[~2018-03-06] VITALS: Ht 182.9 cm; Wt 90.9 kg
[~2018-03-06 22:46] MED LIST changes: +ATIVAN2 MG/ML PO; +BACTRIM DS TABL1 TAB PO; +COLACE100 MG PO; +DURAGESIC1 PATCH .1 TRANSDERM; +HUMULIN R100 U/ML SC; +IBUPROFEN200 MG PO; +K-DUR20 MEQ PO; +MACROBID100 MG PO; +MORPHINE S20 MG/5 ML SL; +NEURONTIN600 MG PO; +OXYBUTYNIN CHLOR5 MG PO; +PHENERGAN25 M1 PO; +REGLAN10 MG PO; +SENNA8.6 MG PO
[2018-03-07 08:57] VITALS: BP 120/78
[2018-03-07 15:29] VITALS: BP 126/78; Ht 182.9 cm; Wt 90.9 kg
[2018-03-07 20:00] VITALS: BP 108/70
[2018-03-08 08:11] VITALS: BP 123/76
[2018-03-08 20:00] VITALS: BP 114/66
[2018-03-09 08:19] VITALS: BP 100/56
[2018-03-09 16:38] VITALS: BP 100/54
[2018-03-09 20:00] VITALS: BP 107/54
[2018-03-10 06:14] VITALS: BP 123/62
[2018-03-10 09:30] VITALS: BP 110/47
[2018-03-10 12:56] VITALS: BP 126/63
[2018-03-10 16:35] VITALS: BP 108/63
[2018-03-10 20:30] VITALS: BP 88/57
[2018-03-11 04:00] VITALS: BP 112/70
[2018-03-11 07:45] VITALS: BP 131/64
[2018-03-11 10:41] VITALS: BP 138/73
[2018-03-11 13:58] VITALS: BP 117/76
== END 2018-03-11 23:17 | DRG 951 ==
LOC: D.M2 22:46
DX: Z51.5 Encounter for palliative care (principal)